=== PATIENT | male | born 1950 | race Caucasian/White ===

== ENCOUNTER → 2017-09-05 | Outpatient (CLI) | payer MEDICARE, OTHER | END | disposition home or self-care (01) | LOC: HKI 13:03 | DX: M17.11 Unilateral primary osteoarthritis, right knee (principal) | CPT/HCPCS: G0463 ==

== ENCOUNTER 2018-01-22 06:21 | Observation (INO) | payer MEDICARE, OTHER ==
[2018-01-22] MEDS: TRANEXAMIC ACID 1,000 MG in NS 100 ML PRE-OP X1 IVPB (07:00)
[2018-01-22] MEDS: LACTATED RINGER'S 1,000 ML IV* (07:00)
[2018-01-22] MEDS: DEXAMETHASONE 4 MG/ML 1 ML INJ IV (07:56)
[2018-01-22] MEDS: LANSOPRAZOLE 30 MG CAP PO (07:57)
[2018-01-22] MEDS: oxyCODONE (CR) 10 MG TAB [oxyCONTIN] PO (07:57)
[2018-01-22] MEDS: VANCOMYCIN 1 GM (PMX) 250 ML IVPB ×2 (07:58→17:22)
[2018-01-22] MEDS: ACETAMINOPHEN 1000MG/100ML IV 100 ML IVPB (07:58)
[2018-01-22] MEDS ORDERED: BUPIVACAINE 0.75%/DEXT (SPINAL) 2 ML INJ (07:59)
[2018-01-22] MEDS: ONDANSETRON 4 MG INJ IV ×4 (07:59→20:59)
[2018-01-22] MEDS: HIP PAIN COCKTAIL VANCO INJ (08:00)
[2018-01-22] MEDS ORDERED: morphine SULFATE/PF (10 MG/10 ML) INJ (08:00)
[2018-01-22] MEDS ORDERED: EPINEPHrine 1 MG INJ (08:01)
[2018-01-22] MEDS: SOD CHLORIDE 0.9% 1,000 ML IV ×3 (08:23→20:53)
[2018-01-22] MEDS ORDERED: EPHEDrine SULFATE 50 MG/5 ML SYG IV (08:30)
[2018-01-22] MEDS ORDERED: DIPHENHYDRAMINE 50 MG INJ IV ×3 (08:30→12:00)
[2018-01-22] MEDS ORDERED: NALOXONE (0.4 MG/ML) INJ IV ×2 (08:30→12:00)
[2018-01-22] MEDS ORDERED: ONDANSETRON 4 MG INJ IV ×2 (08:30→12:00)
[2018-01-22] MEDS ORDERED: KETOROLAC 30 MG INJ IV (08:30)
[2018-01-22] MEDS ORDERED: MIDAZOLAM 1 MG/ML 2 ML INJ IV (08:30)
[2018-01-22] MEDS ORDERED: METOCLOPRAMIDE 10 MG INJ IV (08:30)
[2018-01-22] MEDS ORDERED: MEPERIDINE 25 MG INJ IV (08:30)
[2018-01-22] MEDS ORDERED: ALBUTEROL 0.083% (NEB) 2.5 MG/3 ML AMP HHN (08:30)
[2018-01-22] MEDS ORDERED: hydrALAzine 20 MG INJ IV (08:30)
[2018-01-22] MEDS ORDERED: OXYCODONE/ACETAMINOPHEN (5/325) TAB PO ×2 (08:30)
[2018-01-22] MEDS ORDERED: oxyCODONE 5 MG TAB PO ×2 (08:30)
[2018-01-22] MEDS ORDERED: BISACODYL 10 MG SUPP PR (08:30)
[2018-01-22] MEDS ORDERED: HYDROmorphONE (0.2 MG/ML) 10ML SYG IV ×3 (08:30)
[2018-01-22] MEDS ORDERED: LABETALOL HCL 20MG INJ IV (08:30)
[2018-01-22] MEDS ORDERED: SENNA/DOCUSATE NA (8.6MG/50MG) TAB PO (08:30)
[2018-01-22] MEDS ORDERED: FENTAnyl 50 MCG/ML VIAL IV ×3 (08:30)
[2018-01-22] MEDS ORDERED: NA PHOSPHATE/BIPHOS 133 ML ENEMA PR (08:30)
[2018-01-22] MEDS ORDERED: MIDAZOLAM 1 MG/ML 2 ML INJ (08:41)
[2018-01-22] MEDS: ASPIRIN (EC) 325 MG TAB PO ×3 (09:00→20:59)
[2018-01-22] MEDS ORDERED: PHENYLephrine (100 MCG/ML) 5ML SYG (09:00)
[2018-01-22] MEDS: GABAPENTIN 100 MG CAP PO ×2 (09:00→20:59)
[2018-01-22] MEDS: CELECOXIB 100 MG CAP PO ×2 (09:00→20:09)
[2018-01-22] MEDS ORDERED: FENTAnyl 50 MCG/ML VIAL (09:28)
[2018-01-22] MEDS ORDERED: LABETALOL HCL 20MG INJ (09:39)
[2018-01-22] MEDS: POLYMYXIN/BACITRACIN 1L IRRIG (09:47)
[2018-01-22] MEDS: POLYMYXIN B 500000 UNIT INJ (09:48)
[2018-01-22] MEDS: BACITRACIN 50000 UNITS INJ IRR (09:48)
[2018-01-22] MEDS: TRANEXAMIC ACID 1,000 MG in NS 100 ML INTRA-OP X1 IVPB (10:00)
[2018-01-22] MEDS ORDERED: BACITRACIN 50000 UNITS INJ (10:17)
[2018-01-22] MEDS ORDERED: NEOSTIGMINE 3 MG/3 ML SYRINGE (11:06)
[2018-01-22] MEDS ORDERED: PROPOFOL 20 ML (11:06)
[2018-01-22] MEDS ORDERED: ROCURONIUM 50 MG INJ (11:06)
[2018-01-22] MEDS ORDERED: GLYCOPYRROLATE 0.4 MG INJ (11:07)
[2018-01-22] MEDS ORDERED: HYDROmorphONE 0.5 MG/0.5 ML SYG IV ×2 (12:00)
[2018-01-22] MEDS: DOCUSATE SODIUM 100 MG CAP PO (12:02)
[2018-01-22] MEDS: hydrALAzine 20 MG INJ IV (15:02)
[2018-01-22] MEDS: KETOROLAC 30 MG INJ IV (17:22)
[2018-01-22] MEDS ORDERED: NON-FORMULARY/PATIENT OWN MED (Tiotropium Br/Olodaterol HCl (Stiolto Respimat Inhal Spray) INHALATION (21:00)
[2018-01-22] MEDS ORDERED: DILTIAZEM (SR) 90 MG CAP PO (21:00)
[2018-01-22] MEDS: DILTIAZEM (SR) 60 MG CAP PO (22:13)
[2018-01-23] MEDS: KETOROLAC 30 MG INJ IV (00:05)
[2018-01-23] MEDS: ZOLPIDEM 5 MG TAB PO ×2 (00:05→01:07)
[2018-01-23] MEDS: oxyCODONE 5 MG TAB PO ×5 (01:07→15:59)
[2018-01-23] MEDS: ONDANSETRON 4 MG INJ IV (02:30)
[2018-01-23 05:46] LABS: ADD MAN DIFF? NO
[2018-01-23 05:53] LABS: ABNORMAL IP MESSAGE 1; BASOPHILS % 0.1 % (0.0-2.0); EOSINOPHILS % 0.1 % (0.0-7.0); HEMATOCRIT 34.9 % (42.0-52.0); HEMOGLOBIN 11.5 g/dl (14.0-18.0); LYMPHOCYTES # 0.6 10^3/ul (0.8-2.9); LYMPHOCYTES % 6.9 % (15.0-51.0); MEAN CORPUSCULAR HEMOGLOBIN 30.3 pg (29.0-33.0); MEAN CORPUSCULAR VOLUME 92.1 fl (82.0-101.0); MEAN PLATELET VOLUME 11.8 fl (7.4-10.4); MONOCYTE # 0.7 10^3/ul (0.3-0.9); MONOCYTES % 9.1 % (0.0-11.0); NEUTROPHIL # 6.6 10^3/ul (1.6-7.5); PLATELET COUNT 146 10^3/UL (140-415); POSITIVE DIFF @See below; RED BLOOD COUNT 3.79 10^6/ul (4.70-6.10); RED CELL DISTRIBUTION WIDTH 13.3 % (11.5-14.5)
[2018-01-23 06:05] LABS: ANION GAP 12 (8-16); BLOOD UREA NITROGEN 31 mg/dl (7-20); CALCIUM 8.6 mg/dl (8.4-10.2); CARBON DIOXIDE 29 mmol/L (21-31); CHLORIDE 106 mmol/L (97-110); CREATININE 1.86 mg/dl (0.61-1.24); GLUCOSE 118 mg/dl (70-220); POTASSIUM 4.3 mmol/L (3.5-5.1); SODIUM 143 mmol/L (135-144)
[2018-01-23] MEDS: VANCOMYCIN 1 GM (PMX) 250 ML IVPB (06:43)
[2018-01-23] MEDS: SOD CHLORIDE 0.9% 1,000 ML IV (06:44)
[2018-01-23] MEDS: BETHANECHOL 25 MG TAB PO ×2 (06:44→15:59)
[2018-01-23] MEDS: MAGNESIUM HYDROXIDE 30ML CUP PO (07:45)
[2018-01-23 08:55] LABS: ADD UMIC YES; UR ASCORBIC ACID NEGATIVE (NEGATIVE); UR BILIRUBIN (Dip) NEGATIVE (NEGATIVE); UR BLOOD (Dip) 1+ mg/dL (NEGATIVE); UR CLARITY CLEAR (CLEAR); UR COLOR YELLOW (YELLOW); UR GLUCOSE (Dip) NEGATIVE (NEGATIVE); UR KETONES (Dip) NEGATIVE (NEGATIVE); UR LEUKOCYTE ESTERASE (Dip) TRACE Leu/ul (NEGATIVE); UR NITRITE (Dip) NEGATIVE (NEGATIVE); UR RBC 5 /HPF (0-5); UR SPECIFIC GRAVITY (Dip) 1.023 (1.003-1.030); UR TOTAL PROTEIN (Dip) NEGATIVE (NEGATIVE); UR UROBILINOGEN (Dip) NEGATIVE (NEGATIVE); UR WBC 3 /HPF (0-5)
[2018-01-23] MEDS: CELECOXIB 100 MG CAP PO (09:21)
[2018-01-23] MEDS: DILTIAZEM (SR) 60 MG CAP PO (09:22)
[2018-01-23] MEDS: LOSARTAN 50 MG TAB PO (09:23)
[2018-01-23] MEDS: DOCUSATE SODIUM 100 MG CAP PO (09:23)
[2018-01-23] MEDS: ASPIRIN (EC) 325 MG TAB PO (09:23)
[2018-01-23] MEDS: FERROUS FUMARATE (SR) TAB PO (09:23)
[2018-01-23] MEDS: GABAPENTIN 100 MG CAP PO (09:24)
[2018-01-23] MEDS: [UNRECOGNIZED DRUG - REMARK] XX (13:30)
[2018-01-23] MEDS: KETOROLAC 15 MG INJ IV (15:27)
[2018-01-24] MEDS ORDERED: PANTOPRAZOLE (EC) 40 MG TAB PO (06:00)
== END 2018-01-23 18:46 ==
LOC: REC 06:21 → MS1 13:39
DX: M17.11 Unilateral primary osteoarthritis, right knee (principal); I12.9 Hypertensive chronic kidney disease with stage 1 through stage 4 chronic kidney disease, or unspecified chronic kidney disease; N18.9 Chronic kidney disease, unspecified; J44.9 Chronic obstructive pulmonary disease, unspecified; I69.351 Hemiplegia and hemiparesis following cerebral infarction affecting right dominant side; E78.00 Pure hypercholesterolemia, unspecified
CPT/HCPCS: 27447; 73560; 80048; 81001; 85025; 87081; 87086; 88304; 88311; 97110; 97116; 97163; 97530; 99217

== ENCOUNTER 2018-01-23 19:37 | Inpatient (IN) | payer MEDICARE, OTHER ==
[2018-01-23] MEDS: CELECOXIB 200 MG CAP PO (21:52)
[2018-01-23] MEDS: DOCUSATE SODIUM 100 MG CAP PO (21:52)
[2018-01-23] MEDS: SENNA TAB PO (21:52)
[2018-01-23] MEDS: HYDROCODONE/APAP (5/325) TAB PO (21:54)
[2018-01-23 23:24] LABS: ADD UMIC YES; UR ASCORBIC ACID NEGATIVE (NEGATIVE); UR BILIRUBIN (Dip) NEGATIVE (NEGATIVE); UR BLOOD (Dip) 1+ mg/dL (NEGATIVE); UR CLARITY SLIGHTLY CLOUDY (CLEAR); UR COLOR YELLOW (YELLOW); UR GLUCOSE (Dip) NEGATIVE (NEGATIVE); UR KETONES (Dip) NEGATIVE (NEGATIVE); UR LEUKOCYTE ESTERASE (Dip) 1+ Leu/ul (NEGATIVE); UR NITRITE (Dip) NEGATIVE (NEGATIVE); UR RBC 8 /HPF (0-5); UR SPECIFIC GRAVITY (Dip) 1.018 (1.003-1.030); UR TOTAL PROTEIN (Dip) NEGATIVE (NEGATIVE); UR UROBILINOGEN (Dip) NEGATIVE (NEGATIVE); UR WBC 30 /HPF (0-5)
[2018-01-23] MEDS ORDERED: oxyCODONE 5 MG TAB PO (23:30)
[2018-01-24] MEDS: oxyCODONE 5 MG TAB PO ×4 (01:20→15:32)
[2018-01-24 06:29] LABS: ADD MAN DIFF? NO
[2018-01-24 06:33] LABS: WHITE BLOOD COUNT 10.4 10^3/ul (4.8-10.8)
[2018-01-24 06:33] LABS: BASOPHIL # 0.1 10^3/ul (0.0-0.1); BASOPHILS % 0.5 % (0.0-2.0); EOSINOPHILS # 0.4 10^3/ul (0.0-0.5); EOSINOPHILS % 3.7 % (0.0-7.0); HEMATOCRIT 35.9 % (42.0-52.0); HEMOGLOBIN 11.7 g/dl (14.0-18.0); LYMPHOCYTES # 0.9 10^3/ul (0.8-2.9); LYMPHOCYTES % 8.6 % (15.0-51.0); MEAN CORPUSCULAR HGB CONC 32.6 g/dl (32.0-37.0); MEAN CORPUSCULAR VOLUME 92.1 fl (82.0-101.0); MEAN PLATELET VOLUME 10.8 fl (7.4-10.4); MONOCYTE # 1.3 10^3/ul (0.3-0.9); MONOCYTES % 12.6 % (0.0-11.0); NEUTROPHIL # 7.7 10^3/ul (1.6-7.5); NEUTROPHILS % 73.8 % (39.0-77.0); PLATELET COUNT 158 10^3/UL (140-415); RED CELL DISTRIBUTION WIDTH 13.3 % (11.5-14.5)
[2018-01-24 06:54] LABS: ALANINE AMINOTRANSFERASE 26 IU/L (13-69); ALBUMIN 3.1 g/dl (3.3-4.9); ALKALINE PHOSPHATASE 53 IU/L (42-121); ANION GAP 9 (8-16); ASPARTATE AMINO TRANSFERASE 14 IU/L (15-46); BILIRUBIN,INDIRECT 0.5 mg/dl (0-1.1); BILIRUBIN,TOTAL 0.5 mg/dl (0.2-1.3); BLOOD UREA NITROGEN 28 mg/dl (7-20); CALCIUM 8.6 mg/dl (8.4-10.2); CARBON DIOXIDE 30 mmol/L (21-31); CHLORIDE 106 mmol/L (97-110); CREATININE 1.53 mg/dl (0.61-1.24); GLUCOSE 143 mg/dl (70-220); POTASSIUM 4.1 mmol/L (3.5-5.1); SODIUM 141 mmol/L (135-144); TOTAL PROTEIN 5.9 g/dl (6.1-8.1)
[2018-01-24] MEDS: ASPIRIN (EC) 325 MG TAB PO ×2 (09:17→20:38)
[2018-01-24] MEDS: LOSARTAN 50 MG TAB PO (09:17)
[2018-01-24] MEDS: LACTULOSE 30ML CUP PO (09:17)
[2018-01-24] MEDS: DILTIAZEM (SR) 60 MG CAP PO ×2 (09:17→20:38)
[2018-01-24] MEDS: DOCUSATE SODIUM 100 MG CAP PO (09:17)
[2018-01-24] MEDS: GABAPENTIN 100 MG CAP PO ×2 (09:17→20:38)
[2018-01-24] MEDS: CELECOXIB 200 MG CAP PO ×2 (09:17→20:38)
[2018-01-24] MEDS: NA PHOSPHATE/BIPHOS 133 ML ENEMA PR (13:00)
[2018-01-24] MEDS: TIOTROPIUM 18 MCG CAPSULE INHA DEV INH (20:38)
[2018-01-24] MEDS: SENNA TAB PO (20:39)
[2018-01-24] MEDS: DOCUSATE SODIUM 250 MG CAP PO (21:09)
[2018-01-25] MEDS: oxyCODONE 5 MG TAB PO ×4 (00:17→16:09)
[2018-01-25 07:27] LABS: ANION GAP 7 (8-16); BLOOD UREA NITROGEN 21 mg/dl (7-20); CALCIUM 8.8 mg/dl (8.4-10.2); CARBON DIOXIDE 27 mmol/L (21-31); CHLORIDE 108 mmol/L (97-110); CHOL/HDL RATIO 2.8 RATIO; CHOLESTEROL 139 mg/dl (100-200); CREATININE 1.28 mg/dl (0.61-1.24); GLUCOSE 113 mg/dl (70-220); HDL CHOLESTEROL 48 mg/dl (30-78); LDL CHOLESTEROL,CALCULATED 70 mg/dl; POTASSIUM 4.1 mmol/L (3.5-5.1); SODIUM 138 mmol/L (135-144); TRIGLYCERIDES 105 mg/dl (0-149)
[2018-01-25 08:29] LABS: HEMOGLOBIN A1C 5.9 % (0-5.9)
[2018-01-25] MEDS: DILTIAZEM (SR) 60 MG CAP PO ×2 (08:54→20:47)
[2018-01-25] MEDS: SENNA TAB PO ×2 (08:54→20:48)
[2018-01-25] MEDS: GABAPENTIN 100 MG CAP PO ×2 (08:54→20:48)
[2018-01-25] MEDS: TIOTROPIUM 18 MCG CAPSULE INHA DEV INH ×2 (08:55→20:47)
[2018-01-25] MEDS: CELECOXIB 200 MG CAP PO ×2 (08:55→20:48)
[2018-01-25] MEDS: ASPIRIN (EC) 325 MG TAB PO ×2 (08:55→20:47)
[2018-01-25] MEDS: LOSARTAN 50 MG TAB PO (08:55)
[2018-01-25] MEDS: FINASTERIDE 5 MG TAB PO (13:17)
[2018-01-25] MEDS: DOXAZOSIN 1 MG TAB PO (16:10)
[2018-01-25] MEDS: SALMETEROL/FLUTICASONE 250/50 INHA INH ×2 (16:11→20:45)
[2018-01-25] MEDS: BISACODYL 10 MG SUPP PR (18:58)
[2018-01-25] MEDS: DOXAZOSIN 2 MG TAB PO (20:48)
[2018-01-25] MEDS: DOCUSATE SODIUM 250 MG CAP PO (20:48)
[2018-01-25] MEDS: MONTELUKAST 10 MG TAB PO (20:48)
[2018-01-25] MEDS: TAMSULOSIN (SR) 0.4 MG CAP PO (20:51)
[2018-01-26] MEDS: MAGNESIUM HYDROXIDE 30ML CUP PO ×2 (05:17→11:24)
[2018-01-26] MEDS: SENNA TAB PO ×2 (08:28→20:17)
[2018-01-26] MEDS: SALMETEROL/FLUTICASONE 250/50 INHA INH ×2 (08:28→20:16)
[2018-01-26] MEDS: TIOTROPIUM 18 MCG CAPSULE INHA DEV INH ×2 (08:28→20:16)
[2018-01-26] MEDS: LOSARTAN 50 MG TAB PO (08:29)
[2018-01-26] MEDS: ASPIRIN (EC) 325 MG TAB PO ×2 (08:29→20:17)
[2018-01-26] MEDS: GABAPENTIN 100 MG CAP PO ×2 (08:29→20:17)
[2018-01-26] MEDS: FINASTERIDE 5 MG TAB PO (08:29)
[2018-01-26] MEDS: CELECOXIB 200 MG CAP PO ×2 (08:29→20:17)
[2018-01-26] MEDS: DILTIAZEM (SR) 60 MG CAP PO ×2 (08:30→20:19)
[2018-01-26] MEDS: oxyCODONE 5 MG TAB PO ×2 (10:33→20:18)
[2018-01-26] MEDS: LACTULOSE 30ML CUP PO (11:24)
[2018-01-26] MEDS: DOCUSATE SODIUM 250 MG CAP PO (20:17)
[2018-01-26] MEDS: DOXAZOSIN 2 MG TAB PO (20:17)
[2018-01-26] MEDS: TAMSULOSIN (SR) 0.4 MG CAP PO (20:17)
[2018-01-26] MEDS: MONTELUKAST 10 MG TAB PO (20:17)
[2018-01-26 20:55] LABS: ADD MAN DIFF? NO
[2018-01-26 20:58] LABS: BASOPHILS % 0.3 % (0.0-2.0); EOSINOPHILS # 0.4 10^3/ul (0.0-0.5); EOSINOPHILS % 4.5 % (0.0-7.0); HEMATOCRIT 37.7 % (42.0-52.0); HEMOGLOBIN 12.2 g/dl (14.0-18.0); LYMPHOCYTES # 0.9 10^3/ul (0.8-2.9); LYMPHOCYTES % 10.6 % (15.0-51.0); MEAN CORPUSCULAR HEMOGLOBIN 29.8 pg (29.0-33.0); MEAN CORPUSCULAR HGB CONC 32.4 g/dl (32.0-37.0); MEAN CORPUSCULAR VOLUME 92.2 fl (82.0-101.0); MEAN PLATELET VOLUME 10.1 fl (7.4-10.4); MONOCYTE # 1.3 10^3/ul (0.3-0.9); MONOCYTES % 15.2 % (0.0-11.0); NEUTROPHIL # 5.9 10^3/ul (1.6-7.5); NEUTROPHILS % 68.6 % (39.0-77.0); PLATELET COUNT 173 10^3/UL (140-415); RED BLOOD COUNT 4.09 10^6/ul (4.70-6.10); RED CELL DISTRIBUTION WIDTH 13.2 % (11.5-14.5)
[2018-01-26 20:58] LABS: WHITE BLOOD COUNT 8.6 10^3/ul (4.8-10.8)
[2018-01-26 21:28] LABS: ANION GAP 10 (8-16); BLOOD UREA NITROGEN 21 mg/dl (7-20); CALCIUM 9.4 mg/dl (8.4-10.2); CARBON DIOXIDE 30 mmol/L (21-31); CHLORIDE 103 mmol/L (97-110); CREATININE 1.56 mg/dl (0.61-1.24); GLUCOSE 130 mg/dl (70-220); POTASSIUM 4.3 mmol/L (3.5-5.1); SODIUM 139 mmol/L (135-144)
[2018-01-26] MEDS: MAGNESIUM CITRATE 300 ML BTL PO (23:26)
[2018-01-27] MEDS: oxyCODONE 5 MG TAB PO (02:41)
[2018-01-27] MEDS ORDERED: NA PHOSPHATE/BIPHOS 133 ML ENEMA PR (07:00)
[2018-01-27] MEDS: DILTIAZEM (SR) 60 MG CAP PO ×2 (09:00→21:48)
[2018-01-27] MEDS: SENNA TAB PO ×3 (09:00→21:48)
[2018-01-27] MEDS: LOSARTAN 50 MG TAB PO (09:00)
[2018-01-27] MEDS: FINASTERIDE 5 MG TAB PO ×2 (09:00→15:04)
[2018-01-27] MEDS: ASPIRIN (EC) 325 MG TAB PO ×2 (09:00→21:48)
[2018-01-27] MEDS: CELECOXIB 200 MG CAP PO ×3 (09:00→21:47)
[2018-01-27] MEDS: GABAPENTIN 100 MG CAP PO ×3 (09:00→21:48)
[2018-01-27] MEDS: traMADol 50 MG TAB PO ×3 (09:29→21:47)
[2018-01-27] MEDS: TIOTROPIUM 18 MCG CAPSULE INHA DEV INH ×2 (09:49→21:47)
[2018-01-27] MEDS: SALMETEROL/FLUTICASONE 250/50 INHA INH ×2 (09:49→21:46)
[2018-01-27] MEDS: METOCLOPRAMIDE 10 MG INJ IV (14:35)
[2018-01-27] MEDS: METOCLOPRAMIDE 5 MG TAB PO (18:16)
[2018-01-27] MEDS: TAMSULOSIN (SR) 0.4 MG CAP PO (21:47)
[2018-01-27] MEDS: MONTELUKAST 10 MG TAB PO (21:48)
[2018-01-27] MEDS: DOXAZOSIN 2 MG TAB PO (21:49)
[2018-01-27] MEDS: DOCUSATE SODIUM 250 MG CAP PO (21:49)
[2018-01-28] MEDS: traMADol 50 MG TAB PO ×4 (01:10→20:21)
[2018-01-28] MEDS: METOCLOPRAMIDE 5 MG TAB PO ×4 (01:10→13:42)
[2018-01-28] MEDS ORDERED: VITAMIN A & D 5 GM OINT PACKET TOP (08:52)
[2018-01-28] MEDS: TIOTROPIUM 18 MCG CAPSULE INHA DEV INH ×2 (09:00→20:20)
[2018-01-28] MEDS: SALMETEROL/FLUTICASONE 250/50 INHA INH ×2 (09:02→20:21)
[2018-01-28] MEDS: FINASTERIDE 5 MG TAB PO (09:03)
[2018-01-28] MEDS: ALBUTEROL HFA 8 GM INHALER INH (09:03)
[2018-01-28] MEDS: SENNA TAB PO ×2 (09:03→20:19)
[2018-01-28] MEDS: LOSARTAN 50 MG TAB PO (09:04)
[2018-01-28] MEDS: ACETAMINOPHEN 325 MG TAB PO (09:04)
[2018-01-28] MEDS: DILTIAZEM (SR) 60 MG CAP PO ×2 (09:05→20:21)
[2018-01-28] MEDS: GABAPENTIN 100 MG CAP PO ×2 (09:05→20:20)
[2018-01-28] MEDS: ASPIRIN (EC) 325 MG TAB PO ×2 (09:05→20:20)
[2018-01-28] MEDS: CELECOXIB 200 MG CAP PO ×2 (09:05→20:19)
[2018-01-28] MEDS ORDERED: METOCLOPRAMIDE 5 MG TAB PO (17:35)
[2018-01-28] MEDS: METOCLOPRAMIDE 10 MG TAB PO (17:46)
[2018-01-28] MEDS: DOCUSATE SODIUM 250 MG CAP PO (20:19)
[2018-01-28] MEDS: MONTELUKAST 10 MG TAB PO (20:19)
[2018-01-28] MEDS: TAMSULOSIN (SR) 0.4 MG CAP PO ×2 (20:19→21:00)
[2018-01-28] MEDS: DOXAZOSIN 2 MG TAB PO (20:20)
[2018-01-28] MEDS: HYDROCODONE/APAP (5/325) TAB PO (23:24)
[2018-01-29] MEDS: traMADol 50 MG TAB PO ×3 (06:25→20:05)
[2018-01-29] MEDS: METOCLOPRAMIDE 10 MG TAB PO ×4 (07:35→17:35)
[2018-01-29 08:53] LABS: PROSTATE SPECIFIC ANTIGEN 0.7 ng/ml (0.0-4.0)
[2018-01-29] MEDS: SALMETEROL/FLUTICASONE 250/50 INHA INH ×2 (09:14→20:05)
[2018-01-29] MEDS: DILTIAZEM (SR) 60 MG CAP PO ×2 (09:15→20:06)
[2018-01-29] MEDS: ACETAMINOPHEN 325 MG TAB PO (09:15)
[2018-01-29] MEDS: BETHANECHOL 10 MG TAB PO ×3 (09:15→20:06)
[2018-01-29] MEDS: ASPIRIN (EC) 325 MG TAB PO ×2 (09:15→20:07)
[2018-01-29] MEDS: TAMSULOSIN (SR) 0.4 MG CAP PO ×2 (09:16→20:07)
[2018-01-29] MEDS: TIOTROPIUM 18 MCG CAPSULE INHA DEV INH ×2 (09:16→20:05)
[2018-01-29] MEDS: GABAPENTIN 100 MG CAP PO ×2 (09:16→20:07)
[2018-01-29] MEDS: SENNA TAB PO ×2 (09:16→20:07)
[2018-01-29] MEDS: CELECOXIB 200 MG CAP PO ×2 (09:16→20:06)
[2018-01-29] MEDS: FINASTERIDE 5 MG TAB PO (09:16)
[2018-01-29] MEDS: LOSARTAN 50 MG TAB PO (09:17)
[2018-01-29] MEDS: EUCERIN 113 GM CR TOP ×2 (12:00→20:12)
[2018-01-29] MEDS: MONTELUKAST 10 MG TAB PO (20:06)
[2018-01-29] MEDS: DOCUSATE SODIUM 250 MG CAP PO (20:07)
[2018-01-29] MEDS: DOXAZOSIN 2 MG TAB PO (20:07)
[2018-01-30] MEDS: METOCLOPRAMIDE 10 MG TAB PO ×3 (06:39→17:39)
[2018-01-30] MEDS: traMADol 50 MG TAB PO ×2 (07:46→21:03)
[2018-01-30] MEDS: EUCERIN 113 GM CR TOP ×2 (09:00→21:16)
[2018-01-30] MEDS: SALMETEROL/FLUTICASONE 250/50 INHA INH ×2 (09:00→21:11)
[2018-01-30] MEDS: TIOTROPIUM 18 MCG CAPSULE INHA DEV INH ×2 (09:00→21:02)
[2018-01-30] MEDS: DILTIAZEM (SR) 60 MG CAP PO ×2 (09:01→21:05)
[2018-01-30] MEDS: LOSARTAN 50 MG TAB PO (09:01)
[2018-01-30] MEDS: GABAPENTIN 100 MG CAP PO ×2 (09:01→21:02)
[2018-01-30] MEDS: TAMSULOSIN (SR) 0.4 MG CAP PO ×2 (09:01→21:11)
[2018-01-30] MEDS: CELECOXIB 200 MG CAP PO ×2 (09:01→21:02)
[2018-01-30] MEDS: SENNA TAB PO ×2 (09:01→21:02)
[2018-01-30] MEDS: BETHANECHOL 10 MG TAB PO ×3 (09:02→21:03)
[2018-01-30] MEDS: FINASTERIDE 5 MG TAB PO (09:02)
[2018-01-30] MEDS: ASPIRIN (EC) 325 MG TAB PO ×2 (09:05→21:03)
[2018-01-30] MEDS: MAGNESIUM HYDROXIDE 30ML CUP PO (10:46)
[2018-01-30] MEDS: NA PHOSPHATE/BIPHOS 133 ML ENEMA PR (12:30)
[2018-01-30] MEDS: BISACODYL 10 MG SUPP PR (13:31)
[2018-01-30] MEDS: CLOTRIMAZOLE 1% 30 GM CR TOP (17:39)
[2018-01-30] MEDS: DOCUSATE SODIUM 250 MG CAP PO (21:02)
[2018-01-30] MEDS: MONTELUKAST 10 MG TAB PO (21:03)
[2018-01-30] MEDS: ONDANSETRON 4 MG TAB PO (21:03)
[2018-01-30] MEDS: DOXAZOSIN 2 MG TAB PO (21:05)
[2018-01-31] MEDS: ONDANSETRON 4 MG TAB PO (03:57)
[2018-01-31] MEDS: SENNA TAB PO ×3 (09:00→20:10)
[2018-01-31] MEDS: ASPIRIN (EC) 325 MG TAB PO ×2 (09:40→20:00)
[2018-01-31] MEDS: CELECOXIB 200 MG CAP PO ×2 (09:42→20:00)
[2018-01-31] MEDS: GABAPENTIN 100 MG CAP PO ×2 (09:42→19:59)
[2018-01-31] MEDS: FINASTERIDE 5 MG TAB PO (09:42)
[2018-01-31] MEDS: DILTIAZEM (SR) 60 MG CAP PO ×2 (09:42→20:00)
[2018-01-31] MEDS: TIOTROPIUM 18 MCG CAPSULE INHA DEV INH ×2 (09:43→20:01)
[2018-01-31] MEDS: LOSARTAN 50 MG TAB PO (09:43)
[2018-01-31] MEDS: METOCLOPRAMIDE 10 MG TAB PO ×2 (09:43→12:00)
[2018-01-31] MEDS: TAMSULOSIN (SR) 0.4 MG CAP PO ×2 (09:43→19:59)
[2018-01-31] MEDS: BETHANECHOL 10 MG TAB PO (09:43)
[2018-01-31] MEDS: CLOTRIMAZOLE 1% 30 GM CR TOP ×2 (09:51→20:09)
[2018-01-31] MEDS: EUCERIN 113 GM CR TOP ×2 (09:52→20:09)
[2018-01-31] MEDS: traMADol 50 MG TAB PO ×2 (10:03→20:09)
[2018-01-31] MEDS: METOCLOPRAMIDE 10 MG INJ IV ×2 (13:00→18:17)
[2018-01-31] MEDS: DIATR MEGLU/DIATRIZOATE SODIUM 120 ML BTL (14:05)
[2018-01-31] MEDS: SOD CHLORIDE 0.9% 1,000 ML IV (15:40)
[2018-01-31] MEDS: FLUTICASONE/VILANTEROL 100-25 INH (15:47)
[2018-01-31] MEDS: DOXAZOSIN 2 MG TAB PO (20:01)
[2018-01-31] MEDS: MONTELUKAST 10 MG TAB PO (20:08)
[2018-01-31] MEDS: DOCUSATE SODIUM 250 MG CAP PO (20:10)
[2018-02-01] MEDS: METOCLOPRAMIDE 10 MG INJ IV ×5 (00:04→23:28)
[2018-02-01] MEDS: SOD CHLORIDE 0.9% 1,000 ML IV ×2 (01:30→15:54)
[2018-02-01] MEDS: traMADol 50 MG TAB PO ×3 (05:32→16:43)
[2018-02-01] MEDS: FINASTERIDE 5 MG TAB PO (08:53)
[2018-02-01] MEDS: DILTIAZEM (SR) 60 MG CAP PO (08:53)
[2018-02-01] MEDS: GABAPENTIN 100 MG CAP PO ×2 (08:54→20:44)
[2018-02-01] MEDS: ASPIRIN (EC) 325 MG TAB PO ×2 (08:54→20:44)
[2018-02-01] MEDS: LOSARTAN 50 MG TAB PO (08:54)
[2018-02-01] MEDS: CELECOXIB 200 MG CAP PO ×2 (08:54→20:44)
[2018-02-01] MEDS: SENNA TAB PO ×2 (08:57→20:53)
[2018-02-01] MEDS: EUCERIN 113 GM CR TOP ×2 (08:59→20:55)
[2018-02-01] MEDS: TIOTROPIUM 18 MCG CAPSULE INHA DEV INH ×2 (09:00→20:52)
[2018-02-01] MEDS: CLOTRIMAZOLE 1% 30 GM CR TOP ×2 (09:00→20:54)
[2018-02-01] MEDS: TAMSULOSIN (SR) 0.4 MG CAP PO ×2 (09:00→20:44)
[2018-02-01] MEDS: FLUTICASONE/VILANTEROL 100-25 INH (09:14)
[2018-02-01] MEDS: MONTELUKAST 10 MG TAB PO (20:44)
[2018-02-01] MEDS: DOXAZOSIN 2 MG TAB PO (20:45)
[2018-02-01] MEDS: DOCUSATE SODIUM 250 MG CAP PO (20:48)
[2018-02-02] MEDS: SOD CHLORIDE 0.9% 1,000 ML IV ×3 (02:30→17:26)
[2018-02-02] MEDS: traMADol 50 MG TAB PO ×3 (04:50→20:12)
[2018-02-02] MEDS: METOCLOPRAMIDE 10 MG INJ IV ×3 (05:50→17:26)
[2018-02-02] MEDS: TIOTROPIUM 18 MCG CAPSULE INHA DEV INH ×2 (08:38→20:13)
[2018-02-02] MEDS: FLUTICASONE/VILANTEROL 100-25 INH (08:40)
[2018-02-02] MEDS: GABAPENTIN 100 MG CAP PO ×2 (08:40→20:12)
[2018-02-02] MEDS: DILTIAZEM (CD) 240 MG CAP PO (08:41)
[2018-02-02] MEDS: CELECOXIB 200 MG CAP PO ×2 (08:41→20:20)
[2018-02-02] MEDS: ASPIRIN (EC) 325 MG TAB PO ×2 (08:41→20:12)
[2018-02-02] MEDS: LOSARTAN 50 MG TAB PO (08:41)
[2018-02-02] MEDS: TAMSULOSIN (SR) 0.4 MG CAP PO ×2 (08:41→20:12)
[2018-02-02] MEDS: SENNA TAB PO ×2 (08:42→20:19)
[2018-02-02] MEDS: FINASTERIDE 5 MG TAB PO (08:42)
[2018-02-02] MEDS: EUCERIN 113 GM CR TOP ×2 (08:43→20:19)
[2018-02-02] MEDS: CLOTRIMAZOLE 1% 30 GM CR TOP ×2 (08:43→20:19)
[2018-02-02] MEDS: DOXAZOSIN 4 MG TAB PO (20:11)
[2018-02-02] MEDS: MONTELUKAST 10 MG TAB PO (20:12)
[2018-02-02] MEDS: DOCUSATE SODIUM 250 MG CAP PO (20:18)
[2018-02-03] MEDS: METOCLOPRAMIDE 10 MG INJ IV ×3 (00:35→12:32)
[2018-02-03] MEDS: SOD CHLORIDE 0.9% 1,000 ML IV ×2 (03:30→05:57)
[2018-02-03] MEDS: traMADol 50 MG TAB PO ×4 (04:03→22:43)
[2018-02-03] MEDS: FLUTICASONE/VILANTEROL 100-25 INH (08:15)
[2018-02-03] MEDS: MAGNESIUM HYDROXIDE 30ML CUP PO (08:15)
[2018-02-03] MEDS: TIOTROPIUM 18 MCG CAPSULE INHA DEV INH ×2 (08:16→20:24)
[2018-02-03] MEDS: SENNA TAB PO ×2 (08:16→20:23)
[2018-02-03] MEDS: DILTIAZEM (CD) 240 MG CAP PO (08:16)
[2018-02-03] MEDS: GABAPENTIN 100 MG CAP PO ×2 (08:16→20:23)
[2018-02-03] MEDS: TAMSULOSIN (SR) 0.4 MG CAP PO ×2 (08:16→20:23)
[2018-02-03] MEDS: LOSARTAN 50 MG TAB PO (08:17)
[2018-02-03] MEDS: EUCERIN 113 GM CR TOP ×2 (08:17→20:27)
[2018-02-03] MEDS: FINASTERIDE 5 MG TAB PO (08:17)
[2018-02-03] MEDS: ASPIRIN (EC) 325 MG TAB PO ×2 (08:17→20:23)
[2018-02-03] MEDS: CLOTRIMAZOLE 1% 30 GM CR TOP ×2 (08:24→20:27)
[2018-02-03] MEDS: CELECOXIB 200 MG CAP PO ×2 (08:27→20:23)
[2018-02-03] MEDS: METOCLOPRAMIDE 10 MG TAB PO (17:58)
[2018-02-03] MEDS: DOCUSATE SODIUM 250 MG CAP PO (20:23)
[2018-02-03] MEDS: MONTELUKAST 10 MG TAB PO (20:23)
[2018-02-03] MEDS: DOXAZOSIN 4 MG TAB PO (20:24)
[2018-02-04] MEDS: METOCLOPRAMIDE 10 MG TAB PO ×4 (06:18→17:39)
[2018-02-04] MEDS: FLUTICASONE/VILANTEROL 100-25 INH (08:25)
[2018-02-04] MEDS: MAGNESIUM HYDROXIDE 30ML CUP PO (08:25)
[2018-02-04] MEDS: EUCERIN 113 GM CR TOP ×2 (08:25→20:29)
[2018-02-04] MEDS: DILTIAZEM (CD) 240 MG CAP PO (08:26)
[2018-02-04] MEDS: FINASTERIDE 5 MG TAB PO (08:26)
[2018-02-04] MEDS: ASPIRIN (EC) 325 MG TAB PO ×2 (08:26→20:23)
[2018-02-04] MEDS: TAMSULOSIN (SR) 0.4 MG CAP PO ×2 (08:26→20:25)
[2018-02-04] MEDS: SENNA TAB PO ×2 (08:26→20:29)
[2018-02-04] MEDS: GABAPENTIN 100 MG CAP PO ×2 (08:26→20:23)
[2018-02-04] MEDS: LOSARTAN 50 MG TAB PO (08:27)
[2018-02-04] MEDS: traMADol 50 MG TAB PO ×3 (08:27→20:23)
[2018-02-04] MEDS: CELECOXIB 200 MG CAP PO ×2 (08:27→20:23)
[2018-02-04] MEDS: CLOTRIMAZOLE 1% 30 GM CR TOP ×2 (08:28→20:29)
[2018-02-04] MEDS: TIOTROPIUM 18 MCG CAPSULE INHA DEV INH ×2 (08:28→20:23)
[2018-02-04] MEDS ORDERED: LACTULOSE 30ML CUP PO (10:30)
[2018-02-04] MEDS: MONTELUKAST 10 MG TAB PO (20:24)
[2018-02-04] MEDS: DOXAZOSIN 4 MG TAB PO (20:24)
[2018-02-04] MEDS: DOCUSATE SODIUM 250 MG CAP PO (20:29)
[2018-02-05] MEDS: traMADol 50 MG TAB PO ×2 (01:32→09:54)
[2018-02-05] MEDS: METOCLOPRAMIDE 10 MG TAB PO ×2 (01:36→06:23)
[2018-02-05] MEDS: FLUTICASONE/VILANTEROL 100-25 INH (08:43)
[2018-02-05] MEDS: DILTIAZEM (CD) 240 MG CAP PO (08:45)
[2018-02-05] MEDS: FINASTERIDE 5 MG TAB PO (08:45)
[2018-02-05] MEDS: GABAPENTIN 100 MG CAP PO (08:45)
[2018-02-05] MEDS: LOSARTAN 50 MG TAB PO (08:45)
[2018-02-05] MEDS: SENNA TAB PO (08:45)
[2018-02-05] MEDS: TAMSULOSIN (SR) 0.4 MG CAP PO (08:45)
[2018-02-05] MEDS: CLOTRIMAZOLE 1% 30 GM CR TOP (08:46)
[2018-02-05] MEDS: EUCERIN 113 GM CR TOP (08:46)
[2018-02-05] MEDS: CELECOXIB 200 MG CAP PO (08:46)
[2018-02-05] MEDS: ASPIRIN (EC) 325 MG TAB PO (08:46)
[2018-02-05] MEDS: TIOTROPIUM 18 MCG CAPSULE INHA DEV INH (09:00)
== END 2018-02-05 11:30 | disposition home health service (06) | DRG 560 ==
LOC: VRC 01-25 17:10
PROC: F07Z5ZZ Bed Mobility Treatment (ICD-10-PCS; principal; 2018-01-23)
PROC: F08Z2ZZ Grooming/Personal Hygiene Treatment (ICD-10-PCS; 2018-01-23)
DX: Z47.1 Aftercare following joint replacement surgery (principal); I69.954 Hemiplegia and hemiparesis following unspecified cerebrovascular disease affecting left non-dominant side; Z96.651 Presence of right artificial knee joint; J45.909 Unspecified asthma, uncomplicated; R33.9 Retention of urine, unspecified; K59.00 Constipation, unspecified; E78.5 Hyperlipidemia, unspecified; Z79.82 Long term (current) use of aspirin; I12.9 Hypertensive chronic kidney disease with stage 1 through stage 4 chronic kidney disease, or unspecified chronic kidney disease; N18.9 Chronic kidney disease, unspecified; D64.9 Anemia, unspecified; E66.9 Obesity, unspecified; Z68.31 Body mass index [BMI] 31.0-31.9, adult; N40.0 Benign prostatic hyperplasia without lower urinary tract symptoms; D35.00 Benign neoplasm of unspecified adrenal gland
CPT/HCPCS: 74018; 74176; 74250; 80048; 80053; 80061; 81001; 83036; 84153; 84154; 84443; 85025; 87081; 87086; 97110; 97116; 97163; 97167; 97530; 97535; 97542